=== PATIENT | female | born 2005 | race Caucasian/White ===

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

== ENCOUNTER 2023-10-02 23:36 | Emergency (ER) | payer MEDICAID, OTHER | END 2023-10-03 00:53 | disposition home or self-care (01) | LOC: FB.ED 10-03 00:20 | DX: J06.9 Acute upper respiratory infection, unspecified (principal); K04.7 Periapical abscess without sinus; Z86.16 Personal history of COVID-19; Z79.2 Long term (current) use of antibiotics | CPT/HCPCS: 99283 ==